=== PATIENT | male | born 1950 | race Caucasian/White ===

== ENCOUNTER 2021-03-28 23:24 | Inpatient (IN) | payer MEDICARE, OTHER ==
[~2021-03-28] VITALS: Ht 188 cm; Wt 98.9 kg
[~2021-03-28 23:24] MED LIST: ALLOPURINOL300 MG PO; AMIODARONE HCL200 MG PO; ASPIRIN EC81 MG PO; BRILINTA 90 MG90 MG PO; COLACE SOL100 MG/10 PO; GLUCAGEN1 MG/1 ML IM; GLUTOSE 1537.5 GM PO; HUMALOG 10100 UNITS/ SC; HYDROCHLOROTHIA50 MG PO; IMDUR ER TAB 3030 MG PO; LANTUS INS100 UTS/M1 SC; LIPITOR40 MG PO; LISINOPRIL20 MG PO; LISINOPRIL5 MG PO; LOPRESSOR 25 MG25 MG PO; NITROGLYCERIN0.4 MG SL
[2021-03-29 00:11] LABS: HEMOGLOBIN 15.1 gm/dl (14.0-17.5); RED BLOOD COUNT 4.74 M/UL (4.20-5.50); WHITE BLOOD COUNT 10.3 K/UL (4.5-11.0)
[2021-03-29] MEDS ORDERED: LISINOPRIL20 MG PO (09:40)
[2021-03-29] MEDS ORDERED: LANTUS SOL100 UNIT/1 INJ (09:41)
[2021-03-29] MEDS ORDERED: HUMALOG100 UNIT/3 INJ (09:42)
[2021-03-30 04:55] LABS: HEMOGLOBIN 13.5 gm/dl (14.0-17.5); RED BLOOD COUNT 4.28 M/UL (4.20-5.50)
[2021-03-30 04:57] LABS: WHITE BLOOD COUNT 13.5 K/UL (4.5-11.0)
[2021-03-30] MEDS ORDERED: ASPIRIN EC81 MG PO (11:25)
[2021-03-30] MEDS ORDERED: ENOXAPARIN100 MG/1 M SC (11:25)
[2021-03-30] MEDS ORDERED: ISOSORBIDE MONO30 MG PO (11:25)
[2021-03-30] MEDS ORDERED: TOPROL XL50 MG PO (11:25)
[2021-03-30] MEDS ORDERED: ALDACTONE 25MG25 MG PO (11:25)
[2021-03-30] MEDS ORDERED: COZAAR 50MG TAB50 MG PO (11:25)
[2021-03-30] MEDS ORDERED: ATORVASTATIN CA20 MG PO (11:25)
[2021-03-30] MEDS ORDERED: CLOPIDOGREL75 MG PO (11:25)
[2021-03-30] MEDS ORDERED: LEVOFLOXACIN750 MG PO (14:24)
[2021-03-30] MEDS ORDERED: LASIX TAB 20 MG20 MG PO (15:03)
[2021-03-30] MEDS ORDERED: NITROSTAT0.4 MG SL (15:08)
== END 2021-03-30 21:05 | disposition home or self-care (01) | DRG 280 ==
LOC: ER1 23:24 → PROG CARE 03-29 03:52 → CDU 03-29 03:52 → PROG CARE 03-29 05:36
PROVIDERS: Family Medicine; Internal Medicine Cardiovascular Disease; Physician Assistant; ADMIT Internal Medicine
PROC: B24BZZZ Ultrasonography of Heart with Aorta (ICD-10-PCS; principal; 2021-03-29)
PROC: 4A023N7 Measurement of Cardiac Sampling and Pressure, Left Heart, Percutaneous Approach (ICD-10-PCS; 2021-03-29)
PROC: B2111ZZ Fluoroscopy of Multiple Coronary Arteries using Low Osmolar Contrast (ICD-10-PCS; 2021-03-29)
PROC: B2151ZZ Fluoroscopy of Left Heart using Low Osmolar Contrast (ICD-10-PCS; 2021-03-29)
DX: I21.4 Non-ST elevation (NSTEMI) myocardial infarction (principal); J18.9 Pneumonia, unspecified organism; Z20.822 Contact with and (suspected) exposure to COVID-19; I47.1 Supraventricular tachycardia; I50.42 Chronic combined systolic (congestive) and diastolic (congestive) heart failure; I13.0 Hypertensive heart and chronic kidney disease with heart failure and stage 1 through stage 4 chronic kidney disease, or unspecified chronic kidney disease; I25.118 Atherosclerotic heart disease of native coronary artery with other forms of angina pectoris; E11.22 Type 2 diabetes mellitus with diabetic chronic kidney disease; E78.5 Hyperlipidemia, unspecified; I25.5 Ischemic cardiomyopathy; I08.1 Rheumatic disorders of both mitral and tricuspid valves; N18.30 Chronic kidney disease, stage 3 unspecified; H91.8X3 Other specified hearing loss, bilateral; Z95.1 Presence of aortocoronary bypass graft; Z95.5 Presence of coronary angioplasty implant and graft; Z79.4 Long term (current) use of insulin; Z91.14 Patient's other noncompliance with medication regimen; Z79.01 Long term (current) use of anticoagulants; Z79.82 Long term (current) use of aspirin; I25.2 Old myocardial infarction; Z90.49 Acquired absence of other specified parts of digestive tract; Z88.0 Allergy status to penicillin; Z82.49 Family history of ischemic heart disease and other diseases of the circulatory system
CPT/HCPCS: ECHO; 36415; 71045; 71046; 80048; 80053; 82550; 82553; 82962; 83874; 83880; 84484; 85025; 85730; 93005; 93306; 99152; 99153; 99285; C1769; C1894; J1644; J1650; J1940; J2250; J2405; J3010; J7030; J7040; Q9957; Q9965; U0002

== ENCOUNTER → 2021-08-01 | Outpatient (CLI) | payer MEDICARE, OTHER ==
[~2021-08-01] MED LIST changes: +ALDACTONE 25MG25 MG PO; +ATORVASTATIN CA20 MG PO; +CLOPIDOGREL75 MG PO; +COZAAR 50MG TAB50 MG PO; +ENOXAPARIN100 MG/1 M SC; +HUMALOG100 UNIT/3 INJ; +ISOSORBIDE MONO30 MG PO; +LANTUS SOL100 UNIT/1 INJ; +LASIX TAB 20 MG20 MG PO; +LEVOFLOXACIN750 MG PO; +NITROSTAT0.4 MG SL; +TOPROL XL50 MG PO
== END ==
LOC: HEART 5 15:13
DX: I25.10 Atherosclerotic heart disease of native coronary artery without angina pectoris (principal); I21.9 Acute myocardial infarction, unspecified; I50.22 Chronic systolic (congestive) heart failure; I25.5 Ischemic cardiomyopathy; I07.1 Rheumatic tricuspid insufficiency